=== PATIENT | male | born 1955 | race Caucasian/White ===

== ENCOUNTER → 2017-08-19 | Outpatient (REF) | payer BC ==
[~2017-08-19] MED LIST: ASPI-1471 PO; ASPI-715 PO; BRIM5DRO7 OP; BRIM5DRO7 OS; CEP500 PO; CLIN75SO6 PO; GLUC500T22 PO; MULT1TAB64 PO; OMEG-11 PO; OXYC-823 PO; OXYC-865 PO; PER PO; SAW1CAPS3 PO; ZOST19404 SQ
== END ==
LOC: ZZSENDIN 12:00
PROVIDERS: ATTEND Surgery
DX: D18.01 Hemangioma of skin and subcutaneous tissue (principal)
CPT/HCPCS: 88305

== ENCOUNTER 2018-10-23 15:18 | Emergency (ER) | payer BC ==
[~2018-10-23 15:18] MED LIST changes: +CLIN75SO11 PO; -CLIN75SO6 PO; -SAW1CAPS3 PO; +SAW1CAPS8 PO
[2018-10-23] MEDS ORDERED: PROPOFOL EMUL 10MG/ML 20 ML VL IV ONE (15:25)
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
[2018-10-23] MEDS ORDERED: fentaNYL CITR 100 MCG/2 ML AMP IVP ONE (15:55)
[2018-10-23] MEDS ORDERED: PROPOFOL EMUL(*) 10MG/ML 20 ML 20 ML ONE (16:08)
--- NOTE | 2018-10-23 16:26 | RADIOLOGY IMAGING REPORT ---
FACILITY: PATIENT NAME: Chintan Devine : 1955 MR: [id number] V: [id number] EXAM DATE: ORDERING PHYSICIAN: ALEX JEONG TECHNOLOGIST: Location: [facility] Patient: Chintan Devine : 1955 Visit/Account:[id number] Date of Sevice: 10/23/2018 ADDENDUM #1 ADDENDUM: There is a mistake in the first sentence of the findings. This should state: 3 views of the left wris t, not right wrist. Report Dictated By: Jayy Huizar at 10/27/2018 2:04 PM Report E-Signed By: Jayy Huizar at 10/27/2018 2:05 PM ORIGINAL REPORT XR WRIST 3 OR MORE VIEWS LT Indication: Left wrist pain after fall. Comparison: None Available. Findings: 3 views right wrist. Distal radial compression fracture there is dorsal angulation distal aspect appr oximately 41 degrees. No other fracture or dislocation. No appreciable degenerative changes. No bony lesion or periosteal abnormality. Soft tissues show edema. No radiopaque foreign body. IMPRESSION: 1. Distal left radial compression with dorsal angulation. Report Dictated By: Jayy Huizar at 10/23/2018 4:16 PM Report E-Signed By: Jayy Huizar at 10/23/2018 4:20 PM WSN:[id number]
--- NOTE | 2018-10-23 16:37 | RADIOLOGY IMAGING REPORT ---
FACILITY: [facility] PATIENT NAME: Chintan Devine : 1955 MR: [id number] V: [id number] EXAM DATE: ORDERING PHYSICIAN: ALEX JEONG TECHNOLOGIST: Location: [facility] Patient: Chintan Devine : 1955 Visit/Account:[id number] Date of Sevice: 10/23/2018 Technique: XR WRIST 2 VWS LT HISTORY: Fracture Comparison studies: 10/23/2018 FINDINGS: Redemonstrated is a comminuted intra-articular fracture involving the distal left radial me tadiaphysis. There is improved anatomic alignment status post casting. IMPRESSION: 1. Improved anatomic alignment of the distal left radial fracture status post casting. Report Dictated By: Tushar Dickson DO at 10/23/2018 4:28 PM Report E-Signed By: Tushar Dickson DO at 10/23/2018 4:30 PM WSN:[id number]
[2018-10-23 16:50] VITALS: BP 129/85
== END 2018-10-23 17:10 | disposition home or self-care (01) ==
LOC: ER 15:24
DX: S52.592A Other fractures of lower end of left radius, initial encounter for closed fracture (principal); V17.4XXA Pedal cycle driver injured in collision with fixed or stationary object in traffic accident, initial encounter
CPT/HCPCS: 25605; 73100; 73110; 96374; 99152; 99285; A4565; J2704; J3010